=== PATIENT | female | born 1950 | race Caucasian/White ===

== ENCOUNTER 2017-09-14 15:46 | Emergency (ER) | END 2017-09-14 17:40 | disposition home or self-care (01) ==

== ENCOUNTER 2017-12-23 17:47 | Emergency (ER) | END 2017-12-23 20:48 | disposition home or self-care (01) ==

== ENCOUNTER 2018-02-09 12:56 | Emergency (ER) | END 2018-02-09 14:48 | disposition home or self-care (01) ==

== ENCOUNTER 2018-02-18 17:17 | Emergency (ER) | END 2018-02-18 20:48 | disposition home or self-care (01) ==

== ENCOUNTER 2018-04-22 05:53 | Day surgery (SDC) | END 2018-04-22 15:57 | disposition home or self-care (01) ==